=== PATIENT | female | born 1995 | race Caucasian/White ===

== ENCOUNTER → 2018-05-27 | Outpatient (CLI) | payer OTHER ==
--- NOTE | 2018-05-27 10:31 | MR ---
EXAMINATION TYPE: MR brain/cspine wo DATE OF EXAM: 05/27/2018 COMPARISON: MRI brain August 28, 2012 HISTORY: Blackout per order / Cervicalgia. Additional symptoms of headache per patient. TECHNIQUE: Multiplanar, multisequence imaging of the cervical spine, brain , and brainstem are all pe rformed without IV contrast. FINDINGS: BRAIN: Diffusion weighted images demonstrate no evidence of a recent infarct or other diffusion abnormality. There is no extraaxial fluid collection or significant white matter signal abnormality. The ventricu lar system and cisternal spaces are normal in size and appearance. The brain volume is age appropria te. Midline structures demonstrate normal morphology. The craniocervical junction appears within normal limits. Normal vascular flow voids are present. Mild to moderate mucosal thickening inferior aspect b ilateral maxillary sinuses is now identified. There is mild mucosal thickening anterior ethmoid sinus es bilaterally on current study. Globes are intact bilaterally. IMPRESSION: Chronic paranasal sinus disease anterior ethmoid and bilateral maxillary sinuses new from prior MRI otherwise unremarkable study. C-SPINE: Motion artifact degradation is seen making evaluation slightly suboptimal. FINDINGS: Sagittal images of the cervical spine show the craniocervical junction to appear within nor mal limits. The cervical and upper thoracic spinal cord is normal in course, caliber, and signal. V ertebral alignment is anatomic. The vertebral body and intravertebral disk heights are normal in hei ght. Mild disc desiccation C5-C6 level is present along with C2-C3 level. No large posterior disc her niations are seen on sagittal images. The bone marrow signal intensity is within normal limits. No s ignificant spurring is present. Axial images show there is no significant focal disk disease, spinal canal stenosis, neural foraminal narrowing, or spinal cord compromise at any cervical level. Visualized portion of thyroid gland is f elt unremarkable. IMPRESSION: Negative MRI of the cervical spine, no significant disc herniation is seen to account fo r patient's clinical symptoms.
== END | disposition home or self-care (01) ==
LOC: RADMRIMAIN 08:51
PROVIDERS: ATTEND Psychiatry & Neurology Neurology
DX: J32.0 Chronic maxillary sinusitis (principal); J32.2 Chronic ethmoidal sinusitis; M54.81 Occipital neuralgia; M54.2 Cervicalgia
CPT/HCPCS: 70551; 72141

== ENCOUNTER 2019-02-26 18:06 | Outpatient (CLI) | payer BC, OTHER ==
[2019-02-26 19:17] VITALS: BP 131/68; PULSE 98; RESP 16; TEMP 98.6
--- NOTE | 2019-03-01 14:30 | P.MSEPDOC ---
Presenting Problems - Arrival Data Date of Arrival on Unit: 02/26/19 Time of Arrival on Unit: 18:10 Mode of Transport: Ambulatory - Complaint OB-Reason for Admission/Chief Complaint: Other Comment: pt arrived c/o questionable labor. pt states shes been having cramping 3-4 minutes apart since 1230. pt denies any bleeding Medical History - Information : 3 Para: 2 Term: 2 : 0 Abortions: Spontaneous or Elective: 0 Number of Living Children: 2 - Gestational Age Gestational Age by KEN (wks/days): 37 Weeks and 4 Days - History Complications: Other Comment: pt arrived c/o cramping every 3-4 minutes apart since 1230. pt denies any bleeding Review of Systems - Review of Systems Constitutional: No problems Breast: No problems ENT: No problems Cardiovascular: No problems Respiratory: No problems Gastrointestinal: No problems Genitourinary: No problems Musculoskeletal: No problems Neurological: No problems Skin: No problems Vital Signs - Temperature Temperature: 98.6 F Temperature Source: Oral - Pulse Right Brachial Pulse Rate: 98 Pulse Assessment Method: Automatic Cuff - Respirations Respiratory Rate: 16 Oxygen Delivery Method: Room Air O2 Sat by Pulse Oximetry: 98 - Blood Pressure Right Arm Blood Pressure: 131/68 Blood Pressure Mean: 89 Blood Pressure Source: Automatic Cuff Medical Screen Scoring (Pre) - Cervical Exam Dilation: 1-3 cm = 1 Membranes: Intact - Uterine Contractions Frequency: > 5 minutes apart = 1 Duration: N/A Intensity: N/A - Maternal Vital Signs Maternal Temperature: N/A Maternal Blood Pressure: Systolic >139 = 2 Signs of Preeclampsia: N/A Maternal Respirations: N/A - Maternal Trauma Maternal Trauma: N/A - Assessment - Baby A Baseline FHR: 140 Heart Rate - NICHD Category: Category I (Normal) = 0 NST: Reactive Position: N/A Station: N/A - Total Score - Baby A Total Score - Baby A: 4 - Total Score - Baby B Total Score - Baby B: 4 - Total Score - Baby C Total Score - Baby C: 4 - Level of Risk - Baby A Level of Risk - Baby A: Low (0-5) - Level of Risk - Baby B Level of Risk - Baby B: Low (0-5) - Level of Risk - Baby C Level of Risk - Baby C: Low (0-5) Physician Notification (Pre) - Physician Notified Physician Notified Date: 02/26/19 Physician Notified Time: 07:10 New Order Received: Yes - Notification Comment Comment: amnisure negative Medical Screen Scoring (Post) - Cervical Exam Dilation: 1-3 cm = 1 Membranes: Intact - Uterine Contractions Frequency: N/A Duration: N/A Intensity: N/A - Maternal Vital Signs Maternal Temperature: N/A - Total Score Total Score - Baby A: 1 Total Score - Baby B: 1 Total Score - Baby C: 1 - Post Treatment Level of Risk Post Treatment Level of Risk - Baby A: Low (0-5) Post Treatment Level of Risk - Baby B: Low (0-5) Post Treatment Level of Risk - Baby C: Low (0-5) Physician Notification (Post) - Physician Notified Physician Notified Date: 02/26/19 Physician Notified Time: 19:10 Spoke With: Sandra New Order Received: Yes (Discharge home with instruction) - Notification Comment Comment: No contractions, negative amnisure, 1 cm dilation no change Disposition - Disposition OB Disposition: Discharge to home, Written follow up instructions reviewed Discharge Date: 02/26/19 Discharge Time: 19:17 I agree with the RN Medical Screening Exam: Yes Risk & Benefit of care provided described in d/c instruction: Yes Diagnosis: FALSE LABOR AT OR AFTER 37 COMPLETED WEEKS OF GESTATION
== END 2019-02-26 19:22 | disposition home or self-care (01) ==
LOC: FBPOP 18:06
PROVIDERS: ATTEND Obstetrics & Gynecology Obstetrics
DX: O47.1 False labor at or after 37 completed weeks of gestation (principal); Z3A.37 37 weeks gestation of pregnancy
CPT/HCPCS: 59025; 84112; G0463; 99213

== ENCOUNTER 2019-03-11 09:48 | Inpatient (IN) | payer BC, OTHER ==
[2019-03-11] MEDS ORDERED: AMPICILLIN 2,000 MG in SODIUM CHLORIDE 0.9% 100 ML IVPB STA (10:12)
[2019-03-11] MEDS ORDERED: OXYTOCIN 10 UNIT/ML 1 ML VIAL IM PRN (10:12)
[2019-03-11] MEDS ORDERED: LIDOCAINE 0.5% (PF) 5 MG/ML (50 ML SDV) SQ PRN (10:12)
[2019-03-11] MEDS ORDERED: METHYLERGONOVINE 0.2 MG/ML 1 ML AMP IM PRN (10:12)
[2019-03-11] MEDS ORDERED: TERBUTALINE 1 MG/ML VIAL SQ PRN (10:12)
[2019-03-11] MEDS ORDERED: CARBOPROST TROMETHAMINE 250 MCG/ML 1 ML AMP IM PRN (10:12)
[2019-03-11] MEDS ORDERED: LACTATED RINGERS 1,000 ML IV SCH (10:15)
[2019-03-11 10:17] VITALS: BMI 30.7
[2019-03-11 10:46] LABS: Basophils # (A) 0.1 k/uL (0-0.2); Basophils % (A) 1 %; Eosinophils # (A) 0.1 k/uL (0-0.7); Eosinophils % (A) 2 %; HCT 35.4 % (34.0-46.0); Lymphocytes # (A) 1.2 k/uL (1.0-4.8); Lymphocytes % (A) 18 %; MCH 29.8 pg (25.0-35.0); MCHC 33.9 g/dL (31.0-37.0); MCV 87.9 fL (80.0-100.0); Mean Platelet Volume 7.1; Monocytes # (A) 0.4 k/uL (0-1.0); Monocytes % (A) 6 %; Neutrophils # (A) 4.9 k/uL (1.3-7.7); Neutrophils % (A) 71 %; Platelet Count 196 k/uL (150-450); RBC 4.03 m/uL (3.80-5.40); RDW 13.9 % (11.5-15.5); WBC 6.9 k/uL (3.8-10.6)
[2019-03-11] MEDS ORDERED: HYDROCORTISONE 2.5% RECTAL CREAM 30 GM TUBE RECTAL PRN (12:01)
[2019-03-11] MEDS ORDERED: diphenhydrAMINE 25 MG CAP PO PRN (12:01)
[2019-03-11] MEDS ORDERED: SIMETHICONE 80 MG CHEWABLE PO PRN (12:01)
[2019-03-11] MEDS ORDERED: LANOLIN CREAM 5 GM TUBE TOPICAL PRN (12:01)
[2019-03-11] MEDS ORDERED: BENZOCAINE/MENTHOL SPRAY 1 GM/SPRAY AEROSOL TOPICAL PRN (12:01)
[2019-03-11] MEDS ORDERED: diphenhydrAMINE 50 MG CAP PO PRN (12:01)
[2019-03-11] MEDS ORDERED: diphenhydrAMINE 50 MG/ML 1 ML VIAL IVP PRN ×2 (12:01)
[2019-03-11] MEDS ORDERED: HYDROcodone/APAP 5-325MG 1 EACH TAB PO PRN (12:01)
[2019-03-11] MEDS ORDERED: ZOLPIDEM 5 MG TAB PO PRN (12:01)
[2019-03-11] MEDS ORDERED: WITCH HAZEL 1 EACH MED..PAD TOPICAL PRN (12:01)
--- NOTE | 2019-03-11 12:01 | P.HPOB ---
History of Present Illness H&P Date: 03/11/19 Chief Complaint: IUP at 39-3/7 weeks, active labor, GBS positive This is a 23-year-old 3 para 2001 at 39-3/7 weeks with an estimated due date of 03/15. Patient resents to labor and delivery with regular painful contractions. Patient states her contractions started around 5 AM. She denies vaginal bleeding or loss of fluid at this time. She notes the fetus has been active throughout the day. She has been receiving routine care. care has been essentially uncomplicated. On blood work shows a blood type of A-, rubella immune, B surface antigen negative, group beta strep positive Review of Systems Constitutional: Denies chills, Denies fatigue, Denies fever Ears, nose, mouth and throat: Denies headache Cardiovascular: Reports leg edema Respiratory: Denies dyspnea Gastrointestinal: Denies constipation, Denies diarrhea, Denies nausea, Denies vomiting Genitourinary: Reports Past Medical History Past Medical History: No Reported History Additional Past Medical History / Comment(s): Migraine headaches History of Any Multi-Drug Resistant Organisms: None Reported Past Surgical History: No Surgical Hx Reported Past Anesthesia/Blood Transfusion Reactions: No Reported Reaction Past Psychological History: Anxiety Smoking Status: Never smoker Past Alcohol Use History: None Reported Past Drug Use History: None Reported Medications and Allergies Home Medications Medication Instructions Recorded Confirmed Type Pnv No.95/Ferrous Fum/Folic AC 1 tab PO DAILY 03/11/19 03/11/19 History [ Multivitamin Tablet] Allergies Allergy/AdvReac Type Severity Reaction Status Date / Time sulfamethoxazole Allergy Rash/Hives Verified 03/11/19 10:11 [From Bactrim] trimethoprim [From Bactrim] Allergy Rash/Hives Verified 03/11/19 10:11 Exam Osteopathic Statement: *. No significant issues noted on an osteopathic structural exam other than those noted in the History and Physical/Consult. Vital Signs Temp Pulse Resp BP Pulse Ox 03/11/19 10:14 97.3 F L 95 16 121/71 100 Intake and Output 03/10/19 03/11/19 03/11/19 22:59 06:59 14:59 Other: Weight 76.204 kg On targeted physical exam patient is noted to be a well-nourished well-developed female in active labor, breathing is noted to be nonlabored, heart has a regular rate and rhythm, abdomen is noted to be gravid and appropriate for g estational age, on cervical exam she is 89/100/-1 station heart tones are noted to be category 1 and she is hina every 3-4 minutes. Results Result Diagrams: 03/11/19 10:20 Assessment and Plan (1) Positive GBS test Current Visit: Yes Status: Acute Code(s): B95.1 - STREPTOCOCCUS, GROUP B, CAUSING DISEASES [facility] SNOMED Code(s): 985033958 (2) Active labor at term Current Visit: No Status: Acute Code(s): TSH9964 - SNOMED Code(s): 79113234 (3) Rh negative, maternal Current Visit: No Status: Acute Code(s): O09.899 - SUPERVISION OF OTHER HIGH RISK PREGNANCIES, UNSP TRIMESTER SNOMED Code(s): 295635573 Plan: Patient is admitted to labor and delivery for active labor, anticipate spontaneous vaginal delivery. Antibiotics are started given her group beta strep positive status.
--- NOTE | 2019-03-11 12:04 | P.PROBDLV ---
Vaginal Delivery Note - . Vaginal Delivery Note: This pleasant 23-year-old 3 para 2001 presented to labor and delivery at 39-3/7 weeks in active labor. Patient was admitted and antibiotics were started given her group beta strep positive status. Patient progressed to 8-9 cm amniotomy was performed and clear fluid was obtained. Patient progressed to complete began pushing and with excellent maternal effort had a normal spontaneous vaginal delivery of a viable female at 1142, weight of 8 pounds 0.2 ounces Apgars of 9 and 9 at one and 5 minutes respectively. After two-minute delay the umbilical cord was doubly clamped and cut and the placenta was delivered spontaneously intact with three-vessel cord being noted. The uterus is noted to be firm and below the umbilicus. Inspection the patient's vaginal vault a small clitoral laceration was noted no bleeding was noted therefore no repair was preformed. Patient and infant tolerated delivery well and are resting comfortably.
[2019-03-11] MEDS ORDERED: OXYTOCIN 20 UNITS/1000 ML NS 1,000 ML IV SCH (12:15)
[2019-03-11] MEDS: IBUPROFEN 600 MG TAB PO PRN (12:22)
[2019-03-11] MEDS ORDERED: AMPICILLIN 1,000 MG in SODIUM CHLORIDE 0.9% 50 ML IVPB SCH (14:30)
[2019-03-11] MEDS: ACETAMINOPHEN TAB 325 MG TAB PO PRN ×2 (17:46→22:36)
[2019-03-11] MEDS: SENNOSIDES-DOCUSATE SODIUM 1 EACH TAB PO SCH (19:23)
[2019-03-12] MEDS: ACETAMINOPHEN TAB 325 MG TAB PO PRN (06:28)
[2019-03-12 06:55] LABS: Basophils % (A) 0 %; Eosinophils # (A) 0.1 k/uL (0-0.7); Eosinophils % (A) 1 %; HCT 33.5 % (34.0-46.0); HGB 11.5 gm/dL (11.4-16.0); Lymphocytes # (A) 1.6 k/uL (1.0-4.8); Lymphocytes % (A) 19 %; MCH 30.6 pg (25.0-35.0); MCHC 34.3 g/dL (31.0-37.0); MCV 89.3 fL (80.0-100.0); Monocytes # (A) 0.5 k/uL (0-1.0); Monocytes % (A) 6 %; Neutrophils # (A) 6.2 k/uL (1.3-7.7); Neutrophils % (A) 72 %; Platelet Count 192 k/uL (150-450); RBC 3.75 m/uL (3.80-5.40); RDW 14.1 % (11.5-15.5); WBC 8.6 k/uL (3.8-10.6)
[2019-03-12] MEDS ORDERED: PRENATAL VIT-IRON-FOLIC ACID 1 EACH CAP PO SCH (09:00)
[2019-03-12] MEDS: SENNOSIDES-DOCUSATE SODIUM 1 EACH TAB PO SCH ×2 (09:40→19:33)
--- NOTE | 2019-03-12 11:55 | P.PN ---
Subjective Progress Note Date: 03/12/19 Principal diagnosis: day #1 Slept well. Refusing rhogam. . No pain. Objective - Vital Signs Vital signs: Vital Signs Temp 98.4 F 03/12/19 08:00 Pulse 84 03/12/19 08:00 Resp 18 03/12/19 08:00 BP 114/64 03/12/19 08:00 Pulse Ox 98 03/12/19 00:00 Intake & Output 03/11/19 03/12/19 03/12/19 18:59 06:59 18:59 Intake Total 1200 Balance 1200 Weight 76.204 kg Intake: Oral 1200 Other: # Voids 1 2 - Constitutional General appearance: Present: average body habitus, cooperative - EENT Eyes: Present: PERRLA ENT: Present: hearing grossly normal - Respiratory Respiratory: bilateral: CTA - Cardiovascular Rhythm: regular - Gastrointestinal Gastrointestinal Comment(s): Fundus firm, midline, symmetric, 18 week size. Nontender. General gastrointestinal: Present: normal bowel sounds - Integumentary Integumentary: Present: normal - Neurologic Neurologic: Present: CNII-XII intact - Musculoskeletal Musculoskeletal: Present: gait normal, strength equal bilaterally - Psychiatric Psychiatric: Present: A&O x's 3, appropriate affect - Labs CBC & Chem 7: 03/12/19 06:38 Labs: Abnormal Lab Results - Last 24 Hours (Table) 03/12/19 Range/Units 06:38 RBC 3.75 L (3.80-5.40) m/uL Hct 33.5 L (34.0-46.0) % Assessment and Plan Assessment: day #1. Plan: Baby remains in nursery for antibiotic therapy. Continue care. Likely discharge home tomorrow. Time with Patient: Less than 30
[2019-03-12] MEDS: IBUPROFEN 600 MG TAB PO PRN (19:33)
--- NOTE | 2019-03-13 08:45 | P.DS ---
Providers Date of admission: 03/11/19 10:03 Expected date of discharge: 03/13/19 Attending physician: Ryanne Andrade Primary care physician: Stated None Hospital Course: This is a 23-year-old white female 3 para 2002 EDC 03/15/2019 who presented at 39-3/7 weeks' gestation in early spontaneous labor. is remarkable for positive group B strep cultures. Blood type A-, rubella status immune. Please see dictated history and physical for details. Artificial amniorrhexis revealed clear fluid. Patient went on to quickly deliver a liveborn female with scores of 9 and 9 at one and 5 minutes respectively. The placenta delivered spontaneously and was intact with trivascular cord. weighed 3635 g or 8 pounds 0.6 ounces. Please see dictated delivery note for details. has been treated in the nursery with IV antibiotics for group B strep culture positive status. The patient has done very well since delivery. The patient is voiding, ambulating, passing flatus without difficulty. Vital signs are stable and she is afebrile. Fundus is firm and in the midline, symmetric and 18 week size. Extremities are negative for edema. Breast-feeding is going well. It appears is that the will be discharged home today. Patient is being discharged home with instructions to follow-up with me in the office in 6 weeks. The patient is refusing RhoGAM for blood type A-. I have reminded her of the importance of this especially concerning future pregnancies. I reminded her no intercourse, tampons or douching. She will use [id number] Advil or Aleve, or Motrin as needed for pain. She will continue taking her vitamin daily. She will call me with any fevers shakes or chills, foul smelling or copious lochia, with the passage of large blood clots, with any pain not alleviated by [id number]-[id number] products, or indeed with any concerns. We have briefly discussed options for contraception and we will discuss this further in the office. Assessment: Doing well day number two Health Concerns: none Pertinent Studies: none Procedures: Spontaneous vaginal delivery Patient Condition at Discharge: Good Plan - Discharge Summary Discharge Rx Participant: No New Discharge Prescriptions: No Action Pnv No.95/Ferrous Fum/Folic AC [ Multivitamin Tablet] 1 tab PO DAILY Discharge Medication List Pnv No.95/Ferrous Fum/Folic AC [ Multivitamin Tablet] 1 tab PO DAILY 03/11/19 [History] Follow up Appointment(s)/Referral(s): Ryanne Andrade MD [STAFF PHYSICIAN] - 6 Weeks Discharge Disposition: HOME SELF-CARE Pending Studies Pending Results: none
[2019-03-13] MEDS: SENNOSIDES-DOCUSATE SODIUM 1 EACH TAB PO SCH (08:48)
[2019-03-13 09:02] VITALS: BP 113/66; PULSE 76; RESP 18; TEMP 98.1
== END 2019-03-13 17:15 | disposition home or self-care (01) | DRG 807 ==
LOC: FBPOP 09:48 → 4FBP 10:03
PROVIDERS: ADMIT Obstetrics & Gynecology Obstetrics; ATTEND Obstetrics & Gynecology
PROC: 10E0XZZ Delivery of Products of Conception, External Approach (ICD-10-PCS; principal; 2019-03-11)
DX: O99.824 Streptococcus B carrier state complicating childbirth (principal); Z37.0 Single live birth; O99.344 Other mental disorders complicating childbirth; O99.354 Diseases of the nervous system complicating childbirth; O26.893 Other specified pregnancy related conditions, third trimester; F41.9 Anxiety disorder, unspecified; G43.909 Migraine, unspecified, not intractable, without status migrainosus; O71.89 Other specified obstetric trauma; Z3A.39 39 weeks gestation of pregnancy; Z67.91 Unspecified blood type, Rh negative; Z88.1 Allergy status to other antibiotic agents; Z88.2 Allergy status to sulfonamides
CPT/HCPCS: 85025; 85461; 86850; 86870; 86880; 86900; 86901